=== PATIENT | female | born 1975 | race Caucasian/White ===

== ENCOUNTER → 2017-02-27 | Outpatient (CLI) | payer OTHER ==
[~2017-02-27] MED LIST: B COCAP3 PO; DIAZ10TA PO; FLUV100T12 PO; IMD/2 PO; MULT-506 PO; TOPI50TA16 PO; VTMD400 PO
[2017-02-27 13:22] LABS: ESTIMATED AVERAGE GLUCOSE 111 mg/dl; HA1C FLAG Normal (Normal)
[2017-02-27 13:43] LABS: ALT/SGPT 29 U/L (12-78); BLOOD UREA NITROGEN 9 mg/dl (7-18); BUN/CREATININE RATIO 9.6 (10-20); CARBON DIOXIDE 25 mmol/L (21-32); CHLORIDE 110 mmol/L (98-107); CHOLESTEROL 149 mg/dl (0-200); CREATININE 0.96 mg/dl (0.60-1.20); GLUCOSE 93 mg/dl (70-99); POTASSIUM 3.9 mmol/L (3.5-5.1); SODIUM 142 mmol/L (136-145); TRIGLYCERIDES 380 mg/dl (0-150); VERY LOW DENSITY LIPOPROT CALC 76 mg/dl
[2017-02-27 13:53] LABS: ALKALINE PHOSPHATASE 84 U/L (45-117); AST/SGOT 18 U/L (15-37); CHOLESTEROL/HDL RATIO 5.5; HDL CHOLESTEROL 27 mg/dl; LDL CHOLESTEROL CALCULATED 46 mg/dl
[2017-02-27 13:54] LABS: CALCIUM 8.8 mg/dl (8.5-10.1)
--- NOTE | 2017-03-06 14:13 | CODING QUERY MEDICAL NECESSITY ---
CQSUPPORTING DIAGNOSIS NEEDED A supporting diagnosis is required for the test/procedure performed on this patient in order for us to be reimbursed by the patient's insurance. Please provide a supporting diagnosis for the following test/procedure listed below next to the test name along with your signature. *If there is no additional diagnosis for this patient that would support the following test/procedure please document that below next to the test/procedure. Test(s)/Procedure(s) that require a supporting diagnosis: DOS 02/27/17 GLYCATED HEMGLOBIN VITAMIN D TEST TEST ORDERED BY PAUL NORTON Provider Signature: Date: Thank you Ashley [facility] Information [facility] Once completed, please kindly fax back to [phone] For questions please call [phone]
== END | disposition home or self-care (01) ==
LOC: C.LABPBG 10:32
PROVIDERS: ATTEND Physician Assistant
DX: Z00.00 Encounter for general adult medical examination without abnormal findings (principal); Z13.1 Encounter for screening for diabetes mellitus; R53.83 Other fatigue; Z13.21 Encounter for screening for nutritional disorder; E55.9 Vitamin D deficiency, unspecified

== ENCOUNTER 2017-05-15 11:51 | Emergency (ER) | payer OTHER ==
[~2017-05-15] VITALS: Ht 167.6 cm; Wt 85.2 kg
[2017-05-15 12:07] VITALS: Ht 167.6 cm; Wt 85.2 kg
[2017-05-15] MEDS ORDERED: B COCAP3 PO (12:36)
[2017-05-15] MEDS ORDERED: IMD/2 PO (12:36)
[2017-05-15] MEDS ORDERED: MULT-506 PO (12:36)
[2017-05-15] MEDS ORDERED: VTMD400 PO (12:36)
[2017-05-15] MEDS ORDERED: FLUV100T12 PO (12:36)
[2017-05-15] MEDS ORDERED: DIAZ10TA PO (12:36)
[2017-05-15] MEDS ORDERED: TOPI50TA16 PO (12:36)
[2017-05-15] MEDS ORDERED: DIAZEPAM 5MG TAB PO STA (12:37)
[2017-05-15 12:40] LABS: PREG INTERNAL NEGATIVE QC NEG CLEAR BACKGROUND; PREG INTERNAL POSITIVE QC POS CONTROL LINE
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
[2017-05-15 12:47] LABS: MANUAL MICROSCOPIC REQUIRED? NO; URINE APPEARANCE SL CLOUDY (CLEAR); URINE BILIRUBIN NEG (NEG); URINE COLOR YELLOW; URINE NITRITE NEG (NEG); UROBILINOGEN NEG (NEG)
[2017-05-15 12:52] LABS: HEMATOCRIT 37.6 % (37-47); MEAN CELL VOLUME 87.9 fL (80-100); MEAN CORPUSCULAR HEMOGLOBIN 29.7 pg (25-34); MEAN CORPUSCULAR HGB CONC 33.8 g/dl (32-36); MEAN PLATELET VOLUME 10.5 fL (7.4-10.4); PLATELET COUNT 224 K/uL (130-400); RED BLOOD COUNT 4.28 M/uL (4.2-5.4); WHITE BLOOD COUNT 9.64 K/uL (4.8-10.8)
[2017-05-15 12:59] LABS: REVIEW REQ? NO
[2017-05-15 13:10] LABS: BENZODIAZEPINE, URINE POS (NEG); COCAINE,URINE NEG (NEG); PHENCYCLIDINE, URINE NEG (NEG)
[2017-05-15 13:13] LABS: ALT/SGPT 34 U/L (12-78); BLOOD UREA NITROGEN 5 mg/dl (7-18); BUN/CREATININE RATIO 5.5 (10-20); CALCIUM 8.5 mg/dl (8.5-10.1); CARBON DIOXIDE 24 mmol/L (21-32); CHLORIDE 113 mmol/L (98-107); CREATININE 0.92 mg/dl (0.60-1.20); GLUCOSE 104 mg/dl (70-99); POTASSIUM 3.6 mmol/L (3.5-5.1); SODIUM 142 mmol/L (136-145)
[2017-05-15 13:18] LABS: BASO % 0.4 %; BASO ABS # 0.04 K/uL (0-0.2); COMPLETE YES; EOS % 2.4 %; IG% 0.2 %; LYMPH % 28.6 %; LYMPH ABS # 2.76 K/uL (1.2-3.4); MONO % 4.3 %; NEUT % 64.1 %
[2017-05-15 13:23] LABS: ALKALINE PHOSPHATASE 84 U/L (45-117); AST/SGOT 15 U/L (15-37)
[2017-05-15 14:34] VITALS: BP 108/69; PULSE 79; TEMP 36.6; O2SAT 99
[2017-05-19 13:24] LABS: HYDROXYETHYLFLURAZEPAM CONF NEGATIVE NG/ML (CUTOFF=50); HYDROXYMIDAZOLAM NEGATIVE NG/ML (CUTOFF=50); HYDROXYTRIAZOLAM CONF NEGATIVE NG/ML (CUTOFF=50); TEMAZEPAM CONF >2000 NG/ML (CUTOFF=50)
== END 2017-05-15 14:30 | disposition home or self-care (01) ==
LOC: EDBD 11:51 → C.EDA 11:54
DX: F39 Unspecified mood [affective] disorder (principal); F44.5 Conversion disorder with seizures or convulsions; F43.10 Post-traumatic stress disorder, unspecified; Z79.899 Other long term (current) drug therapy

== ENCOUNTER → 2017-10-21 | Day surgery (SDC) | payer OTHER ==
[2017-10-03 10:42] VITALS: BMI 28.0
[~2017-10-21] VITALS: Ht 167.6 cm; Wt 79.5 kg
[~2017-10-21] MED LIST changes: -B COCAP3 PO; -DIAZ10TA PO; +DIAZ10TA3 PO; +DICY10CA12 PO; +FENTANYL CITRATE INJ 50 MCG/1 ML 2 ML VIAL ONE; -IMD/2 PO; +LIDOCAINE HCL 2% 2 ML VIAL (20MG/ML) ONE; +ONDA4TAB46 PO; +PROPOFOL IV EMULSION 10 MG/ML 20 ML VIAL IV ONE; +SODIUM CHLORIDE 0.9% 500ML 500 ML IV ONE; -VTMD400 PO; +ZOLP1TAB PO
[2017-10-21 11:12] VITALS: Ht 167.6 cm; Wt 79.5 kg
--- NOTE | 2017-10-21 11:14 | Endo History and Physical ---
History & Physical Date of Service: Oct 21, 2017. Chief Complaint: Diarrhea and Vomiting Referring Physician: Dr. Zazueta History of Present Illness 42 yo CF who presents for EGD and Colonoscopy secondary to vomiting and diarrhea. Past Surgical History Hx Cardiac Surgery: No Hx Internal Defibrillator: No Hx Pacemaker: No Hx Abdominal Surgery: Yes (APPY, NATALYA, HYSTERECTOMY) Hx of Implantable Prosthesis: No Hx Post-Op Nausea and Vomiting: No Hx Cancer Surgery: No Hx Thoracic Surgery: No Hx Orthopedic: Yes (LEFT KNEE X 2 SURGERY) Hx Urinary Tract Surgery: No Family History Esophogeal CA Social History Smoking Status: Current Every Day Smoker Hx Substance Use: No Hx Alcohol Use: Yes (RARELY) Allergies Coded Allergies: Clonazepam (Unverified Allergy, Intermediate, AGITATION, 10/03/17) Codeine (Unverified Allergy, Intermediate, VOMITTING, 10/21/17) Lorazepam (Unverified Allergy, Intermediate, AGITATION, 10/21/17) Current Medications Reported Home Medications Medications Dose Route/Sig Max Daily Dose Days Date Category Dose Instructions Multivitamin (Multivitamins) Tab 1 Tab PO DAILY 10/03/17 Reported Zofran (Ondansetron HCl) 4 Mg Tab 4 Mg PO Q8H PRN 10/03/17 Reported Dicyclomine Hcl 10 Mg Cap 1 Cap PO TID 10/03/17 Reported Ambien Er (Zolpidem Tartrate) 12.5 Mg Tab 12.5 Mg PO HS PRN 10/03/17 Reported Valium (Diazepam) 10 Mg Tab 10 Mg PO DAILY PRN 10/03/[address] WITH MEDICATION Luvox (Fluvoxamine Maleate) 100 Mg Tab 100 Mg PO TID 10/03/17 Reported Topamax (Topiramate) 50 Mg Tab 2 Tab PO HS 10/03/17 Reported Vital Signs Weight (Kilograms): 79.55 Height (Feet): 5 Height (Inches): 6 Physical Exam General Appearance: WD/WN, no apparent distress Respiratory/Chest: Auscultation: breath sounds normal Cardiovascular: Heart Auscultation: RRR Abdomen: Bowel Sounds: normal Inspection & Palpation: soft, non-distended, no tenderness, guarding & rebound Assessment and Plan Assessment: 42 yo CF who presents for EGD and Colonoscopy secondary to vomiting and diarrhea. Plan: Proceed with EGD and Colonoscopy.
--- NOTE | 2017-10-21 12:42 | Discharge Instructions ---
Endoscopy Patient Instructions Date / Procedure(s) Performed Oct 21, 2017. Colonoscopy, EGD Allergy Information Coded Allergies: Clonazepam (Unverified Allergy, Intermediate, AGITATION, 10/03/17) Codeine (Unverified Allergy, Intermediate, VOMITTING, 10/21/17) Lorazepam (Unverified Allergy, Intermediate, AGITATION, 10/21/17) Discharge Date / Findings Oct 21, 2017. EGD: Hiatal hernia and Esophagitis s/p biopsies Colonoscopy: Random colon biopsies, Stool studies collected, Internal hemorrhoids Medication Instructions OK to resume all medications today as prescribed Reported Home Medications Medications Dose Route/Sig Max Daily Dose Days Date Category Dose Instructions Multivitamin (Multivitamins) Tab 1 Tab PO DAILY 10/03/17 Reported Zofran (Ondansetron HCl) 4 Mg Tab 4 Mg PO Q8H PRN 10/03/17 Reported Dicyclomine Hcl 10 Mg Cap 1 Cap PO TID 10/03/17 Reported Ambien Er (Zolpidem Tartrate) 12.5 Mg Tab 12.5 Mg PO HS PRN 10/03/17 Reported Valium (Diazepam) 10 Mg Tab 10 Mg PO DAILY PRN 10/03/[address] WITH MEDICATION Luvox (Fluvoxamine Maleate) 100 Mg Tab 100 Mg PO TID 10/03/17 Reported Topamax (Topiramate) 50 Mg Tab 2 Tab PO HS 10/03/17 Reported Provider Instructions Activity Restrictions - No exercising or heavy lifting for 24 hours. - Do not drink alcohol the day of the procedure. - Do not drive a car or operate machinery until the day after the procedure. - Do not make any important decisions or sign important papers in 24 hours after the procedure. Following Day: - Return to full activity which may include returning to work/school. Diet Start your diet with liquids and light foods (jello, soup, juice, toast). Then eat your usual diet if not nauseated. Treatment For Common After Affects For mild abdominal pain, bloating, or excessive gas: - Rest - Eat lightly - Lie on right side Follow-Up Information Follow-up with Dr. Zazueta as scheduled Anesthesia Information What You Should Know You have had a procedure that required some medicine to reduce anxiety and discomfort. This treatment is called moderate sedation. After receiving the treatment, you may be sleepy, but you will be able to breathe on your own. The effects of the treatment may last for several hours. Follow these instructions along with Activity/Diet recommendations noted above: * Do NOT do anything where dizziness or clumsiness would be dangerous. * Rest quietly at home today, then you can be up and about tomorrow. * Have a responsible person stay with you the rest of today. * You may have had an I.V. today. If so, you may take the dressing off later today. Recommendations Call your doctor if: * Trouble breathing * Continuous vomiting for more than 24 hours * Temperature above 101 degrees * Severe abdominal pain or bloating * Pain not relieved by pain medicine ordered * There is increased drainage or redness from any incision * A large amount of rectal bleeding greater than 2-3 tablespoons. (If you had a polyp/s removed or have hemorrhoids, a small amount of blood - from the rectum is to be expected.) * You have any unanswered questions or concerns. IN THE EVENT OF A SERIOUS EMERGENCY, GO TO THE NEAREST EMERGENCY ROOM Your discharge instructions were prepared by provider Yg Becerra. Patient Instructions Signature Page [facility] Patient (or Guardian) Signature/Date: I have read and understand the instructions given to me by my caregivers. Caregiver/RN/Doctor Signature/Date: The above-named patient and/or guardian has received patient instructions on this date. + Original Patient Signature Page (only) stays with chart. Please make copy for patient.
--- NOTE | 2017-10-21 12:43 | GI REPORT ---
Procedure Date: 10/21/2017 11:44 AM Procedure: Upper GI endoscopy Indications: Vomiting Medicines: Monitored Anesthesia Care Complications: No immediate complications. Estimated Blood Loss: Estimated blood loss: none. Procedure: Pre-Anesthesia Assessment: - Prior to the procedure, a History and Physical was performed, and patient medications and allergies were reviewed. The patient's tolerance of previous anesthesia was also reviewed. The risks and benefits of the procedure and the sedation options and risks were discussed with the patient. All questions were answered, and informed consent was obtained. Prior Anticoagulants: The patient has taken no previous anticoagulant or antiplatelet agents. ASA Grade Assessment: II - A patient with mild systemic disease. After reviewing the risks and benefits, the patient was deemed in satisfactory condition to undergo the procedure. After obtaining informed consent, the endoscope was passed under direct vision. Throughout the procedure, the patient's blood pressure, pulse, and oxygen saturations were monitored continuously. The scope was introduced through the mouth, and advanced to the second part of duodenum. The upper GI endoscopy was accomplished without difficulty. The patient tolerated the procedure well. Findings: LA Grade C (one or more mucosal breaks continuous between tops of 2 or more mucosal folds, less than 75% circumference) esophagitis with no bleeding was found. Biopsies were taken with a cold forceps for histology. A small hiatal hernia was present. The examined duodenum was normal. Impression: - LA Grade C reflux esophagitis. Biopsied. - Small hiatal hernia. - Normal examined duodenum. Recommendation: - Resume previous diet. - Use Protonix (pantoprazole) 40 mg PO daily. - Await pathology results. - Return to primary care physician as previously scheduled. Yg Becerra, 10/21/2017 12:42:45 PM This report has been signed electronically. Note Initiated On: 10/21/2017 11:44 AM I attest to the content of the Intraoperative Record and orders documented therein, exceptions below
--- NOTE | 2017-10-21 12:52 | GI REPORT ---
Procedure Date: 10/21/2017 12:08 PM Procedure: Colonoscopy Indications: Chronic diarrhea Medicines: Monitored Anesthesia Care Complications: No immediate complications. Estimated Blood Loss: Estimated blood loss: none. Procedure: Pre-Anesthesia Assessment: - Prior to the procedure, a History and Physical was performed, and patient medications and allergies were reviewed. The patient's tolerance of previous anesthesia was also reviewed. The risks and benefits of the procedure and the sedation options and risks were discussed with the patient. All questions were answered, and informed consent was obtained. Prior Anticoagulants: The patient has taken no previous anticoagulant or antiplatelet agents. ASA Grade Assessment: II - A patient with mild systemic disease. After reviewing the risks and benefits, the patient was deemed in satisfactory condition to undergo the procedure. After I obtained informed consent, the scope was passed under direct vision. Throughout the procedure, the patient's blood pressure, pulse, and oxygen saturations were monitored continuously. The scope was introduced through the anus and advanced to the terminal ileum. The colonoscopy was performed without difficulty. The patient tolerated the procedure well. The quality of the bowel preparation was good. The terminal ileum, ileocecal valve, appendiceal orifice, and rectum were photographed. Findings: The perianal and digital rectal examinations were normal. Multiple small-mouthed diverticula were found in the sigmoid colon. Non-bleeding internal hemorrhoids were found during retroflexion. The hemorrhoids were small. Several random biopsies were obtained with cold forceps for histology in the entire colon. Fluid aspiration for stool studies was performed in the entire colon. Impression: - Diverticulosis in the sigmoid colon. - Non-bleeding internal hemorrhoids. - Several random biopsies were obtained in the entire colon. - Fluid aspiration was performed. Recommendation: - Resume previous diet. - Continue present medications. - Repeat colonoscopy for surveillance based on pathology results. - Return to primary care physician as previously scheduled. Yg Becerra, 10/21/2017 12:52:05 PM This report has been signed electronically. Note Initiated On: 10/21/2017 12:08 PM I attest to the content of the Intraoperative Record and orders documented therein, exceptions below
[2017-10-21 13:03] VITALS: BP 108/83; PULSE 69; O2SAT 100
--- NOTE | 2017-10-21 13:07 | Anesthesiology Progress Note ---
Anesthesia Post Op Note Date & Time Oct 21, 2017 at 13:07 Vital Signs Pain Intensity: 0 Vital Signs Past 12 Hours Date Time Temp Pulse Resp B/P (MAP) Pulse Ox O2 Delivery O2 Flow Rate FiO2 10/21/17 12:46 68 18 95/68 (77) 100 Room Air 10/21/17 12:31 78 12 93/61 (72) 100 Room Air 10/21/17 11:20 36.9 72 18 115/83 (94) 100 Room Air Notes Mental Status: alert / awake / arousable, participated in evaluation Pt Amnestic to Procedure: Yes Nausea / Vomiting: adequately controlled Pain: adequately controlled Airway Patency, RR, SpO2: stable & adequate BP & HR: stable & adequate Hydration State: stable & adequate Anesthetic Complications: no major complications apparent
== END | disposition home or self-care (01) ==
LOC: C.GI 10:51
PROVIDERS: ATTEND Internal Medicine
DX: R11.10 Vomiting, unspecified (principal); K52.9 Noninfective gastroenteritis and colitis, unspecified; K21.0 Gastro-esophageal reflux disease with esophagitis; K44.9 Diaphragmatic hernia without obstruction or gangrene; K57.30 Diverticulosis of large intestine without perforation or abscess without bleeding; K64.8 Other hemorrhoids; F32.9 Major depressive disorder, single episode, unspecified; F17.200 Nicotine dependence, unspecified, uncomplicated; Z88.5 Allergy status to narcotic agent; Z90.89 Acquired absence of other organs; Z90.49 Acquired absence of other specified parts of digestive tract; Z90.710 Acquired absence of both cervix and uterus; Z98.890 Other specified postprocedural states

== ENCOUNTER 2017-12-23 17:29 | Emergency (ER) | payer OTHER ==
[~2017-12-23] VITALS: Ht 167.6 cm; Wt 86.4 kg
[~2017-12-23 17:29] MED LIST changes: -FENTANYL CITRATE INJ 50 MCG/1 ML 2 ML VIAL ONE; -LIDOCAINE HCL 2% 2 ML VIAL (20MG/ML) ONE; -PROPOFOL IV EMULSION 10 MG/ML 20 ML VIAL IV ONE; -SODIUM CHLORIDE 0.9% 500ML 500 ML IV ONE
[2017-12-23 17:30] VITALS: TEMP 37; Ht 167.6 cm; Wt 86.4 kg
[2017-12-23] MEDS ORDERED: IPRATROPIUM BROMIDE NEB SOLN 0.02% 2.5 ML VIAL INH STA (18:06)
[2017-12-23] MEDS ORDERED: LEVALBUTEROL 1.25MG/0.5ML NEB INH STA (18:06)
--- NOTE | 2017-12-23 18:23 | EMERGENCY ROOM VISIT NOTE ---
History Report prepared by Jg: Sandi Cordoba Under the Supervision of: Dr. Neal Toro M.D. First contact with patient: 18:01 Chief Complaint: ANXIETY Stated Complaint: ANXIETY, SOB History of Present Illness The patient is a 42 year old female who presents to the Emergency Room with complaints of sudden shortness of breath occurring shortly prior to arrival. The patient states that she went to urgent care 4 days ago and was told she had bronchitis and pneumonia--she was placed on doxycycline. She states that she had been sick 7-10 days before her visit. She reports that she has been breathing in dust due to work being done on the door in her house. She also reports having a cough and states that she has been vomiting. The patient reports no history of asthma, but states that she does smoke. She reports that she has used her son's inhaler who has chronic bronchitis, but reports that she was never prescribed one. She also reports having green and bloody sputum, and states that she had blood clots coming out of her nose when she did the Kady pot. She also states that she has a rash on the back of her neck. The patient reports that she is bipolar and reports feeling manic and anxious due to her breathing problems and sleep deprivation. She reports that she was on Valium, but that she ran out of medication over a month ago. The patient reports a history of a cholecystectomy, hypertension, hysterectomy, and diverticulosis, but denies a history of diabetes and kidney problems. The patient was given 4 mg of Zofran and 2 mg of Valium IV en route per EMS. Source of History: patient Onset: shortly prior to arrival Position: other (global) Quality: other (shortness of breath ) Timing: other (sudden ) Associated Symptoms: + cough, + vomiting, + rash Note: additional symptom: coughing up green and bloody sputum Review of Systems See HPI for pertinent positives & negatives. A total of 10 systems reviewed and were otherwise negative. Past Medical & Surgical Medical Problems: (1) Anxiety (2) Psychogenic nonepileptic seizure (3) PTSD (post-traumatic stress disorder) Family History FH: COPD (chronic obstructive pulmonary disease) Social History Smoking Status: Current Every Day Smoker Marital Status: Current/Historical Medications Scheduled Albuterol Hfa (Ventolin Hfa), 3 PUFFS INH Q6H Azithromycin (Zithromax Z-Sarath), 0 PO UD Cholecalciferol (Vitamin D3), 2 TABS PO DAILY Doxycycline Hyclate (Doxycycline Hyclate), 100 MG PO BID Fluvoxamine Maleate (Luvox), 300 MG PO HS Multiple Vitamins W/ Minerals (Womens 50+ Multi Vitamin), 1 TAB PO DAILY Hellier-3 Fatty Acids (Hellier 3), 1 CAP PO HS Pantoprazole (Protonix), 40 MG PO DAILY Topiramate (Topamax), 100 MG PO HS Vitamin B Cmplx/Vitc/Folic Ac (Nephrocaps), 1 CAP PO DAILY Scheduled PRN Ssgunyk-Uoxkzwmyoopzz-Hobuvkzd (Migraine Formula), 1 TAB PO UD PRN for Migraine Dicyclomine Hcl (Dicyclomine Hcl), 10 MG PO ACHS PRN for Abdominal Pain Docusate Sodium (Docusate Sodium), 100 MG PO UD PRN for Constipation Loperamide Hcl (Imodium), 2 MG PO Q2D PRN for Diarrhea Allergies Coded Allergies: Clonazepam (Unverified Allergy, Intermediate, AGITATION, 10/03/17) Codeine (Unverified Allergy, Intermediate, VOMITTING, 10/21/17) Lorazepam (Unverified Allergy, Intermediate, AGITATION, 10/21/17) Physical Exam Vital Signs Date Time Temp Pulse Resp B/P (MAP) Pulse Ox O2 Delivery O2 Flow Rate FiO2 12/23/17 21:53 95 20 126/67 100 12/23/17 20:19 96 18 128/77 98 Room Air 12/23/17 19:29 94 20 114/63 100 Room Air 12/23/17 17:30 37.0 86 18 121/81 100 Room Air Physical Exam GENERAL: Patient is in no acute distress. HEENT: No acute trauma, normocephalic atraumatic, mucous membranes moist, no nasal congestion, no scleral icterus. No throat erythema or exudate. NECK: No stridor, no adenopathy, no meningismus, trachea is midline. LUNGS: Diminished breath sounds. No wheezing or rhonchi. Breath sounds equal. No respiratory distress. HEART: Without murmurs gallops or rubs, regular rate and rhythm. ABDOMEN: Soft, nontender, bowel sounds positive, no hernias, no peritonitis. EXTREMITIES: No cyanosis or edema, full range of motion of all the joints without pain or difficulty, no signs for acute trauma. NEUROLOGIC: Oriented x 3, no acute motor or sensory deficits, no focal weakness. SKIN: Erythematous slightly raised patchy rash to the back of the neck. No cellulitis, no vesicles. Rash consistent with possible drug reaction. RECTAL: Brown stool, heme negative. PSYCH: Slightly anxious but cooperative and voluntary. Denies SI. Medical Decision & Procedures ER Provider Diagnostic Interpretation: Radiology results as stated below per my review and radiologist interpretation: CHEST ONE VIEW PORTABLE CLINICAL HISTORY: cough COMPARISON STUDY: No previous studies for comparison. FINDINGS: The cardiac and mediastinal contours are normal. There is no evidence of focal pulmonary consolidation. There is no evidence of failure. No pleural effusions are visualized.[ IMPRESSION: No active disease in the chest. Electronically signed by: Bradly Ochoa M.D. 12/23/2017 7:28 PM Dictated Date/Time: 12/23/2017 7:28 PM Laboratory Results 12/23/17 17:10 Red Blood Count 4.69, Mean Corpuscular Volume 87.8, Mean Corpuscular Hemoglobin 29.4, Mean Corpuscular Hemoglobin Concent 33.5, Mean Platelet Volume 9.9, Neutrophils (%) (Auto) 64.4, Lymphocytes (%) (Auto) 26.8, Monocytes (%) (Auto) 5.6, Eosinophils (%) (Auto) 2.4, Basophils (%) (Auto) 0.4, Neutrophils # (Auto) 9.02, Lymphocytes # (Auto) 3.75, Monocytes # (Auto) 0.78, Eosinophils # (Auto) 0.34, Basophils # (Auto) 0.05 12/23/17 17:10 Test 12/23/17 17:10 White Blood Count 13.99 K/uL (4.8-10.8) Red Blood Count 4.69 M/uL (4.2-5.4) Hemoglobin 13.8 g/dL (12.0-16.0) Hematocrit 41.2 % (37-47) Mean Corpuscular Volume 87.8 fL (80-100) Mean Corpuscular Hemoglobin 29.4 pg (25-34) Mean Corpuscular Hemoglobin Concent 33.5 g/dl (32-36) Platelet Count 313 K/uL (130-400) Mean Platelet Volume 9.9 fL (7.4-10.4) Neutrophils (%) (Auto) 64.4 % Lymphocytes (%) (Auto) 26.8 % Monocytes (%) (Auto) 5.6 % Eosinophils (%) (Auto) 2.4 % Basophils (%) (Auto) 0.4 % Neutrophils # (Auto) 9.02 K/uL (1.4-6.5) Lymphocytes # (Auto) 3.75 K/uL (1.2-3.4) Monocytes # (Auto) 0.78 K/uL (0.11-0.59) Eosinophils # (Auto) 0.34 K/uL (0-0.5) Basophils # (Auto) 0.05 K/uL (0-0.2) RDW Standard Deviation 45.4 fL (36.4-46.3) RDW Coefficient of Variation 14.2 % (11.5-14.5) Immature Granulocyte % (Auto) 0.4 % Immature Granulocyte # (Auto) 0.05 K/uL (0.00-0.02) Anion Gap 9.0 mmol/L (3-11) Est Creatinine Clear Calc Drug Dose 88.2 ml/min Estimated GFR () 89.0 Estimated GFR (Non- 76.8 BUN/Creatinine Ratio 13.0 (10-20) Calcium Level 9.5 mg/dl (8.5-10.1) Thyroid Stimulating Hormone (TSH) 2.890 uIu/ml (0.300-4.500) Free Thyroxine 0.84 ng/dl (0.80-1.60) Laboratory results reviewed by me. Medications Administered Medications (Trade) Dose Ordered Sig/Cielo Route Start Time Stop Time Status Last Admin Dose Admin Levalbuterol (Xopenex 1.25MG/ 0.5ML Neb) 1.25 mg NOW STAT INH 12/23/17 18:06 12/23/17 18:13 DC 12/23/17 18:33 1.25 MG Ipratropium [place] (Atrovent 0.02% 0.5MG/2.5ML Neb) 0.5 mg NOW STAT INH 12/23/17 18:06 18 18:13 DC 12/23/17 18:33 0.5 MG Azithromycin (Zithromax Tab) 500 mg NOW STAT PO 12/23/17 19:58 12/23/17 19:59 DC 12/23/17 20:11 500 MG Albuterol (Ventolin Hfa Inhaler) 2 puffs NOW ONCE INH 12/23/17 20:00 12/23/17 20:01 DC 12/23/17 20:11 2 PUFFS ED Course 1801: The patient was evaluated in room A12B. A complete history and physical exam was performed. 1805: Ordered Ipratropium [place] 0.5 mg INH, Levalbuterol 1.25 mg INH. 1954: Discussed the patient's case. Nhi, the psychiatry case manager management , will talk to the patient. 1957: Ordered Azithromycin 500 mg PO. 1999: Ordered Albuterol 2 puffs INH. 2119: I updated the patient on her results. She is currently being evaluated by the psych liaison. 2199: I spoke with Nhi who said that there are no issues with the patient that require inpatient psychiatric care or any psychiatric intervention. Nhi felt that the patient was stable for discharge. Reevaluated the patient. Discussed results and discharge instructions: She verbalized understanding and agreement. The patient is ready for discharge. Medical Decision The patient is a 42 year old female who presents to the ED with complaints of shortness of breath. Differential diagnoses considered include bronchitis or pneumonia, failed outpatient treatment, sinusitis, anxiety, electrolyte imbalance, anemia, and GI bleed. There is a mild leukocytosis at 13,000, this could be consistent with infection or the stress of her current situation. No concerning anemia. No significant electrolyte abnormality or kidney failure. The patient appears to be in a euthyroid state. Chest film does not show pneumonia, pneumothorax or CHF. On exam, the patient was not febrile, she was not toxic or hypoxic. The patient received a Xopenex Atrovent neb, oral Zithromax and albuterol via [facility], she felt improved. There had been some concern that the patient was manic and that a psych eval was required. The patient felt that she was anxious because of her breathing issue, not truly for mental health reasons. The patient was cooperative, she was voluntary, she did not strike me as severely manic or acutely psychotic. I did have the psychiatry case management officer talk with the patient. There was no reason for hospitalization or further psychiatric treatment. The patient is being discharged. She will stop her doxycycline. She will start the Zithromax and use the albuterol. If things are worsening, she can return. Medication Reconcilliation Current Medication List: was personally reviewed by me Blood Pressure Screening Patient's blood pressure: Normal blood pressure Consults Time Called: 1954 Consulting Physician: Nhi- Psychiatry case management liason Returned Call: 1954 Discussed the patient's case. Nih will talk to the patient. Impression Primary Impression: Acute bronchitis Additional Impression: Anxiety Scribe Attestation The scribe's documentation has been prepared under my direction and personally reviewed by me in its entirety. I confirm that the note above accurately reflects all work, treatment, procedures, and medical decision making performed by me. Departure Information Dispostion Home / Self-Care Prescriptions Albuterol Hfa (VENTOLIN HFA) 200 Puffs/54930 Mcg Aers 3 PUFFS INH Q6H, #1 INHALER Prov: Neal Toro M.D. 12/23/17 Azithromycin (ZITHROMAX Z-SARATH) 250 Mg Tab 0 PO UD, #1 PKT Prov: Neal Toro M.D. 12/23/17 Referrals Gisela Zazueta DO (PCP) Forms HOME CARE DOCUMENTATION FORM, IMPORTANT VISIT INFORMATION Patient Instructions My [facility] Additional Instructions stop the doxycycline start zpac as prescribed use albuterol 2 puffs every 4-6 hours return if worsening or if feeling suicidal xray today was ok as we discussed Problem Qualifiers
[2017-12-23 18:27] LABS: BASO % 0.4 %; BASO ABS # 0.05 K/uL (0-0.2); EOS % 2.4 %; EOS ABS # 0.34 K/uL (0-0.5); HEMATOCRIT 41.2 % (37-47); HEMOGLOBIN 13.8 g/dL (12.0-16.0); IG# 0.05 K/uL (0.00-0.02); LYMPH % 26.8 %; LYMPH ABS # 3.75 K/uL (1.2-3.4); MEAN CELL VOLUME 87.8 fL (80-100); MEAN CORPUSCULAR HEMOGLOBIN 29.4 pg (25-34); MEAN CORPUSCULAR HGB CONC 33.5 g/dl (32-36); MEAN PLATELET VOLUME 9.9 fL (7.4-10.4); MONO % 5.6 %; MONO ABS # 0.78 K/uL (0.11-0.59); NEUT % 64.4 %; NEUT ABS # 9.02 K/uL (1.4-6.5); PLATELET COUNT 313 K/uL (130-400); RED CELL DISTRIBUTION WIDTH CV 14.2 % (11.5-14.5); RED CELL DISTRIBUTION WIDTH SD 45.4 fL (36.4-46.3); WHITE BLOOD COUNT 13.99 K/uL (4.8-10.8)
[2017-12-23 18:34] LABS: CALCIUM 9.5 mg/dl (8.5-10.1); CREATININE 0.92 mg/dl (0.60-1.20); POTASSIUM 3.7 mmol/L (3.5-5.1)
[2017-12-23] MEDS ORDERED: OMEG12006 PO (18:54)
[2017-12-23] MEDS ORDERED: PANT40TA PO (18:54)
[2017-12-23] MEDS ORDERED: DOXY1TAB6 PO (18:54)
[2017-12-23] MEDS ORDERED: MULT-602 PO (18:58)
[2017-12-23] MEDS ORDERED: CHOL1000 PO (19:01)
[2017-12-23] MEDS ORDERED: ASPITAB PO (19:01)
[2017-12-23] MEDS ORDERED: B-CO1CAP17 PO (19:01)
[2017-12-23] MEDS ORDERED: DOCU100C31 PO (19:03)
[2017-12-23] MEDS ORDERED: IMD/2 PO (19:03)
--- NOTE | 2017-12-23 19:30 | DIAGNOSTIC IMAGING REPORT ---
CHEST ONE VIEW PORTABLE CLINICAL HISTORY: cough COMPARISON STUDY: No previous studies for comparison. FINDINGS: The cardiac and mediastinal contours are normal. There is no evidence of focal pulmonary consolidation. There is no evidence of failure. No pleural effusions are visualized.[ IMPRESSION: No active disease in the chest. Electronically signed by: Bradly Ochoa M.D. 12/23/2017 7:28 PM Dictated Date/Time: 12/23/2017 7:28 PM
[2017-12-23] MEDS ORDERED: AZITHROMYCIN 250 MG TAB PO STA (19:58)
[2017-12-23] MEDS ORDERED: ALBUTEROL HFA 8 GM INHALER INH ONE (20:00)
[2017-12-23] MEDS ORDERED: AZITTAB PO (21:30)
[2017-12-23] MEDS ORDERED: VNTHFA/IN INH (21:30)
[2017-12-23 21:53] VITALS: BP 126/67; PULSE 95; O2SAT 100
== END 2017-12-23 21:55 | disposition home or self-care (01) ==
LOC: EDBD 17:29 → C.EDA 17:31
DX: J44.0 Chronic obstructive pulmonary disease with (acute) lower respiratory infection (principal); F41.9 Anxiety disorder, unspecified; Z87.01 Personal history of pneumonia (recurrent); F17.210 Nicotine dependence, cigarettes, uncomplicated; F31.9 Bipolar disorder, unspecified; Z90.49 Acquired absence of other specified parts of digestive tract; I10 Essential (primary) hypertension; Z90.710 Acquired absence of both cervix and uterus; F43.10 Post-traumatic stress disorder, unspecified; Z79.899 Other long term (current) drug therapy; Z88.5 Allergy status to narcotic agent; Z88.8 Allergy status to other drugs, medicaments and biological substances